=== PATIENT | female | born 1975 | race Caucasian/White ===

== ENCOUNTER 2022-01-13 19:51 | Emergency (ER) | payer OTHER ==
[~2022-01-13] VITALS: Ht 167.6 cm; Wt 110.8 kg
[2022-01-13 20:05] VITALS: BP 136/74
--- NOTE | 2022-01-13 20:15 | NUR ---
PT TAKEN TO BED 02.
--- NOTE | 2022-01-13 20:35 | NUR ---
SHIPYARD PAINTER AT BEDSIDE
--- NOTE | 2022-01-13 20:54 | NUR ---
46 Y/O FEMALE BIBS FROM HOME, C/O ADB PAIN X5 DAYS. PT STATES THE PAIN IS 6/10, SHARP, COMES/GOES, AND STARTS IN LUQ AND RASDIATES TO LWER DIFFUSE ABD AND BACK. DENIES DYSURIA, N/V/D, FEVER, OR COUGH. PT IS ABLE TO AMBULATE UNASSISTED. PT HAS UNLABORED BREATHING; SKIN IS NORMAL, WARM, AND DRY; A/OX4, GCS-15. PT IS SEATED IN BED WITH HOB RAISED AND BED IN LOWEST SETTING, WITH RAIL UP X1. SPOUSE IS AT BEDSIDE. DENIES PMH ALL: AMOXICILLIN, NITROFURANTOIN SX: X4 , UTERINE ABLATION, TUBAL LIGATION
--- NOTE | 2022-01-13 21:09 | NUR ---
ER MD AT BEDSIDE EXAMINING PT
[2022-01-13] MEDS ORDERED: ONDANSETRON 4 MG/2 ML VIAL IVP ONE (21:15)
[2022-01-13] MEDS ORDERED: NACL 0.9% 1,000 ML IV SCH (21:15)
[2022-01-13] MEDS ORDERED: KETOROLAC 30 MG/ML VIAL IVP ONE (21:15)
--- NOTE | 2022-01-13 21:22 | NUR ---
PT TAKEN TO CT
--- NOTE | 2022-01-13 21:29 | NUR ---
PT RETURNED FROM CT
[2022-01-13 21:48] LABS: BASOPHILS # (AUTO) 0.1 K/uL (0.00-0.22); BASOPHILS % (AUTO) 0.6 % (0.0-2.0); EOSINOPHILS # (AUTO) 0.2 K/uL (0-0.4); EOSINOPHILS % (AUTO) 1.6 % (0.0-4.0); HEMATOCRIT 37.5 % (36-48); HEMOGLOBIN 12.5 g/dL (12.0-16.0); LYMPHOCYTES # (AUTO) 2.5 K/uL (2.5-16.5); LYMPHOCYTES % (AUTO) 23.4 % (20.5-51.1); MEAN CORPUSCULAR HEMOGLOBIN 28 pg (27-31); MEAN CORPUSCULAR HGB CONC 33 g/dL (33-37); MONOCYTES # (AUTO) 0.8 K/uL (0.8-1.0); MONOCYTES % (AUTO) 6.9 % (1.7-9.3); NEUTROPHILS # (AUTO) 7.3 K/uL (1.8-7.7); NEUTROPHILS % (AUTO) 67.5 % (42.2-75.2); PLATELET COUNT (AUTO) 333 K/uL (140-450); RED BLOOD CELL COUNT(AUTO) 4.42 MIL/uL (4.20-5.40); RED CELL DISTRIBUTION WIDTH 13.6 % (11.6-13.7); WHITE BLOOD COUNT (AUTO) 10.9 K/uL (4.8-10.8)
[2022-01-13 21:48] LABS: APPEARANCE,URINE CLEAR (CLEAR); BILIRUBIN,URINE NEGATIVE (NEGATIVE); BLOOD, URINE 1+ (NEGATIVE); COLOR,URINE YELLOW (YELLOW); LEUKOCYTE ESTERASE ,URINE NEGATIVE (NEGATIVE); NITRITE, URINE NEGATIVE (NEGATIVE); UGLUCOSE NEGATIVE (NEGATIVE)
[2022-01-13 22:09] LABS: ALBUMIN 3.8 g/dL (3.4-5.0); ANION GAP 10.1 (8-16); CARBON DIOXIDE 27.3 mmol/L (21-32); CREATININE 0.8 mg/dL (0.6-1.3); POTASSIUM 3.4 mmol/L (3.5-5.1); TOTAL BILIRUBIN 0.3 mg/dL (0.0-1.0)
[2022-01-13 22:16] LABS: RBC,URINE NONE SEEN /HPF (0-5); WBC,URINE 0-5 /HPF (0-5)
[2022-01-13] MEDS ORDERED: ACET-10509 PO (23:06)
[2022-01-13] MEDS ORDERED: IBUP-2213 PO (23:08)
[2022-01-13 23:50] VITALS: BP 142/78
--- NOTE | 2022-01-13 23:50 | NUR ---
Patient discharged with v/s stable. Written and verbal after care instructions given and explained. Patient alert, oriented and verbalized understanding of instructions. Ambulatory with steady gait. All questions addressed prior to discharge. ID band removed. Patient advised to follow up with PMD. Rx of IBUPROFEN AND ACETAMINOPHEN given. Patient educated on indication of medication including possible reaction and side effects. Opportunity to ask questions provided and answered. VSS, A/OX4, UNLABORED BREATHING, AMBULATORY, AND CALM DEMEANOR.
== END 2022-01-13 23:50 | disposition home or self-care (01) ==
LOC: MED 19:51
DX: R10.32 Left lower quadrant pain (principal); R11.0 Nausea; D72.829 Elevated white blood cell count, unspecified; E87.6 Hypokalemia; I10 Essential (primary) hypertension; Z98.890 Other specified postprocedural states; Z88.1 Allergy status to other antibiotic agents; Z88.0 Allergy status to penicillin
CPT/HCPCS: 36415; 74176; 80053; 81001; 81025; 82150; 83690; 85025; 87086; 96361; 96374; 96375; 99284; J1885; J2405; J7030

== ENCOUNTER 2023-02-14 19:24 | Emergency (ER) | payer OTHER ==
[~2023-02-14] VITALS: Ht 167.6 cm; Wt 117.9 kg
[~2023-02-14 19:24] MED LIST: ACET-10509 PO; IBUP-2213 PO
[2023-02-14 19:30] VITALS: BP 140/73
--- NOTE | 2023-02-14 19:33 | NUR ---
to lobby a/w bed ambulatory
--- NOTE | 2023-02-14 20:07 | NUR ---
PT AMBULATES TO BED 7
--- NOTE | 2023-02-14 20:14 | NUR ---
48 Y/O F FROM HOME PRESENTS WITH SHARP, DULL ABD 6/10 PAIN X4DAYS RADIATING TO L BACK AND L LEG. PT STATED SHE WENT TO URGENT CARE YESTERDAY WAS PRESCRIBED KEFLEX X2DAYS AGO DUE TO BLOOD IN URINE AND UTI. PT STATED SHE HAS HISTORY OF CYST ON OVARIES, NO SURGERY. PT DENIES ANY NVD, NO HEADACHES. PT A&OX4, SKIN INTACT, RSPIRATIONS EVENA ND UNLABORED PMH-UTI, CYST ON OVARIES, ALLERGIES- AMOXICILLIN, NITROFURANTONIN MEDS-KEFLEX
[2023-02-14 20:16] LABS: APPEARANCE,URINE CLEAR (CLEAR); BILIRUBIN,URINE NEGATIVE (NEGATIVE); BLOOD, URINE TRACE-I (NEGATIVE); COLOR,URINE YELLOW (YELLOW); LEUKOCYTE ESTERASE ,URINE NEGATIVE (NEGATIVE); NITRITE, URINE NEGATIVE (NEGATIVE); UGLUCOSE NEGATIVE (NEGATIVE)
--- NOTE | 2023-02-14 20:19 | NUR ---
Patient being evaluated by physician at bedside.
[2023-02-14] MEDS ORDERED: KETOROLAC 15 MG/ML VIAL IM ONE (20:25)
[2023-02-14 20:34] LABS: OTHER CRYSTALS,URINE SODIUM URATES 1+ /HPF (None Seen); RBC,URINE 0-5 /HPF (0-5)
[2023-02-14 20:36] LABS: BASOPHILS # (AUTO) 0.1 K/uL (0.00-0.22); BASOPHILS % (AUTO) 1.1 % (0.0-2.0); EOSINOPHILS # (AUTO) 0.2 K/uL (0-0.4); EOSINOPHILS % (AUTO) 2.1 % (0.0-4.0); HEMATOCRIT 36.4 % (36-48); HEMOGLOBIN 12.4 g/dL (12.0-16.0); LYMPHOCYTES # (AUTO) 2.7 K/uL (2.5-16.5); LYMPHOCYTES % (AUTO) 26.6 % (20.5-51.1); MEAN CORPUSCULAR HEMOGLOBIN 29 pg (27-31); MEAN CORPUSCULAR HGB CONC 34 g/dL (33-37); MEAN CORPUSCULAR VOLUME 84.3 fL (80-94); MONOCYTES # (AUTO) 0.8 K/uL (0.8-1.0); MONOCYTES % (AUTO) 7.7 % (1.7-9.3); NEUTROPHILS # (AUTO) 6.3 K/uL (1.8-7.7); NEUTROPHILS % (AUTO) 62.5 % (42.2-75.2); PLATELET COUNT (AUTO) 332 K/uL (140-450); RED BLOOD CELL COUNT(AUTO) 4.32 MIL/uL (4.20-5.40); RED CELL DISTRIBUTION WIDTH 13.9 % (11.6-13.7); WHITE BLOOD COUNT (AUTO) 10.1 K/uL (4.8-10.8)
--- NOTE | 2023-02-14 20:43 | NUR ---
PT TO CT VIA WHEELCHAIR
--- NOTE | 2023-02-14 20:46 | NUR ---
PT RETURNED FROM CT VIA WHEELCHAIR, AMBULATORY TO RESTROOM WITHOUT ASSISTANCE
[2023-02-14 20:56] LABS: ALBUMIN 3.7 g/dL (3.4-5.0); ANION GAP 12.8 (8-16); CREATININE 0.7 mg/dL (0.6-1.3); POTASSIUM 3.8 mmol/L (3.5-5.1); TOTAL BILIRUBIN 0.2 mg/dL (0.0-1.0)
[2023-02-14] MEDS ORDERED: HYDROcodone/APAP 5/325 MG 1 TAB TAB PO ONE (23:35)
[2023-02-14] MEDS ORDERED: DICYCLOMINE HCL LIQUID 20 MG, ALUMINUM HYD/MAG/SIMETHICONE 30 ML, LIDOCAINE VISCOUS 2% ... PO ONE ×3 (23:35)
[2023-02-14] MEDS ORDERED: ALUMINUM HYD/MAG/SIMETHICONE 30 ML UDC ONE (23:38)
[2023-02-14] MEDS ORDERED: DICYCLOMINE HCL LIQUID 10 MG/5 ML UDC ONE (23:38)
[2023-02-15] MEDS ORDERED: ACET-5636 PO (00:40)
[2023-02-15] MEDS ORDERED: ONDANSETRON 4 MG ODT PO ONE (00:55)
--- NOTE | 2023-02-15 01:11 | NUR ---
PT EXPERINCING SOME NV, MEDICATION ZOFRAN ADMINISTERED. DR. BROOKS NOTIFIED
[2023-02-15 01:45] VITALS: BP 132/74
== END 2023-02-15 01:45 | disposition home or self-care (01) ==
LOC: MED 19:24
DX: R10.32 Left lower quadrant pain (principal); R35.0 Frequency of micturition; I10 Essential (primary) hypertension; Z88.1 Allergy status to other antibiotic agents; Z88.8 Allergy status to other drugs, medicaments and biological substances; Z79.899 Other long term (current) drug therapy; Z72.89 Other problems related to lifestyle
CPT/HCPCS: 36415; 74176; 76830; 80053; 81001; 81003; 81025; 83690; 85025; 93976; 96372; 99285; J1885; Q0092; Q0162

== ENCOUNTER 2024-01-08 06:35 | Emergency (ER) | payer OTHER ==
[~2024-01-08] VITALS: Ht 167.6 cm; Wt 117.9 kg
[~2024-01-08 06:35] MED LIST changes: +ACET-5636 PO
[2024-01-08 06:47] VITALS: TEMP 98.6
[2024-01-08] MEDS: DEXAMETHASONE 10 MG/ML VIAL IM ONE (07:21)
[2024-01-08] MEDS: diphenhydrAMINE 50 MG CAP PO ONE (07:22)
[2024-01-08] MEDS: FAMOTIDINE 20 MG TAB PO ONE (07:23)
[2024-01-08 07:30] VITALS: TEMP 98.6
[2024-01-08] MEDS ORDERED: BEN50 PO (07:56)
[2024-01-08] MEDS ORDERED: PRED20TA5 PO (07:56)
[2024-01-08 08:24] VITALS: O2SAT 99
== END 2024-01-08 08:34 | disposition home or self-care (01) ==
LOC: MED 06:35
DX: L50.9 Urticaria, unspecified (principal); T78.40XA Allergy, unspecified, initial encounter; I10 Essential (primary) hypertension; Z79.1 Long term (current) use of non-steroidal anti-inflammatories (NSAID); Z79.899 Other long term (current) drug therapy; Z88.1 Allergy status to other antibiotic agents; Z91.011 Allergy to milk products; Z88.8 Allergy status to other drugs, medicaments and biological substances; X58.XXXA Exposure to other specified factors, initial encounter
CPT/HCPCS: 96372; 99283; J1100; Q0163

== ENCOUNTER 2024-01-10 15:03 | Emergency (ER) | payer OTHER ==
[~2024-01-10] VITALS: Ht 167.6 cm; Wt 118.4 kg
[~2024-01-10 15:03] MED LIST changes: +BEN50 PO; +PRED20TA5 PO
[2024-01-10 15:11] VITALS: BP 128/85; PULSE 83; RESP 20; TEMP 98.2; O2SAT 100
[2024-01-10] MEDS ORDERED: BENZ-300 PO (15:40)
[2024-01-10] MEDS ORDERED: ACET-10509 PO (15:40)
[2024-01-10 16:12] VITALS: BP 128/85; PULSE 83; RESP 20; TEMP 98.2; O2SAT 100
[2024-01-10 17:18] LABS: FLU A ANTIGEN negative (NEGATIVE); FLU B ANTIGEN negative (NEGATIVE)
== END 2024-01-10 16:13 | disposition home or self-care (01) ==
LOC: MED 15:03
DX: J02.9 Acute pharyngitis, unspecified (principal); R51.9 Headache, unspecified; Z20.822 Contact with and (suspected) exposure to COVID-19; I10 Essential (primary) hypertension; Z79.899 Other long term (current) drug therapy; Z88.0 Allergy status to penicillin; Z91.011 Allergy to milk products; Z88.1 Allergy status to other antibiotic agents
CPT/HCPCS: 87081; 99283